=== PATIENT | female | born 1940 | race Caucasian/White ===

== ENCOUNTER 2023-06-11 15:14 | Outpatient (AMB) | payer MEDICARE, OTHER, SELFPAY ==
--- NOTE | 2023-06-11 15:19 | MHC.OFFVIS ---
Vital Signs 06/11/23 15:26 Height 5 ft 2 in Weight 160 lb BMI 29.3 BP 141/65 H Blood Pressure Location Rt brachial Position Sitting Pulse 68 Pulse Source Pulse Oximeter Pulse Oximetry (%) 97 Oxygen Delivery Method Room Air Intake Visit Reasons: (R) Hip Pain Intake Note: Pain today 7/10 Account Liaison Required: No Accompanied by: Self / Same As Patient Allergies adhesive tape Allergy (Unknown, Verified 06/11/23 15:54) Unknown erythromycin base Allergy (Unknown, Verified 06/11/23 15:54) Unknown Penicillins Allergy (Unknown, Verified 06/11/23 15:54) Unknown thioridazine [From Mellaril] Allergy (Unknown, Verified 06/11/23 15:54) Unknown HPI Comments Details: Ruth is a very pleasant 83-year-old female who presents the office today for evaluation management of her chronic right hip pain. Patient was referred here from [facility], she is undergone steroid injections without improvement of her symptoms. She is looking for neuromodulation. She has been evaluated by Orthopedics, was planning for right hip replacement. Decided that she no longer wanted to proceed with this as she got ?scared?. Would like to try less invasive option. She has been suffering with this pain for many years, worse with walking. Pain today is rated as a 7/10, constant. Patient is currently taking oxycodone 20 mg 4 times daily for pain. Patient also takes Tylenol and gabapentin. Patient had fluoroscopy guided right hip steroid injection approximately 1 year ago without improvement of her symptoms. In terms of muscle damage condition is described as strong, dull, sore, hurting. Pain is negatively impacting patient's activities of daily living, ambulation and normal functioning. She uses a walker for ambulation. She lives at home currently her grandson stays with her. Patient denies use of blood thinners. Denies history of implantable devices, pacemaker, defibrillator. [facility] Medical History (Updated 06/11/23 @ 16:21 by Spring Busch APRN, [employer]) Hyperparathyroidism Osteoarthritis Hypertension Stroke Spondylosis without myelopathy or radiculopathy, lumbar region [employer] customer [employer] (current) use of opiate analgesic Low back pain, unspecified Unilateral primary osteoarthritis, right hip Surgical History (Updated 06/11/23 @ 16:05 by Zelda Eller) Hx of cataract surgery H/O: hysterectomy (~1981) Hx of hernia repair (Unknown) Hx of cholecystectomy (~1994) Social History (Updated 06/11/23 @ 15:29 by Zelda Eller) Alcohol intake: current Alcohol intake frequency: holidays/special occasions only Patient Tobacco Use Status: Former Tobacco user Quit Date: 1984 Review of Systems Const All systems reviewed & are unremarkable except as noted in HPI and below Physical Exam Vital Signs: Last Vital Signs Pulse 68 06/11/23 15:26 BP 141/65 H 06/11/23 15:26 Pulse Ox 97 06/11/23 15:26 Oxygen Delivery Method Room Air 06/11/23 15:26 BMI result Body Mass Index 29.3 General: awake, alert, oriented. Answers questions appropriately. Fully engaged in examination. Skin: warm, dry, intact HEENT: Normocephalic. Hearing intact. Cardiac: External chest normal in appearance. Respiratory: No cough, audible wheezing or stridor. Abdomen: without gross distension. MS: Ambulates with the use of a walker Able to transition from sit to stand unassisted. Ambulates with bilaterally normal heel strike and toe off Right hip range of motion limited Pain with internal external rotation of the right hip Neurological: Oriented to person, place, time and situation. Thought process intact. Psychiatric: Appropriate mood and affect. Good judgment and insight. Assessment & Plan Assessment & Plan (1) Osteoarthritis of right hip: Code(s): M16.11 - Unilateral primary osteoarthritis, right hip Category: Medical (2) Chronic, continuous use of opioids: Code(s): F11.90 - Opioid use, unspecified, uncomplicated Category: Medical Plan Patient presented to the office today for evaluation management of her right hip pain She was pending right hip replacement, decided that she did not want to go for this and is looking for alternative treatment options. Lengthy discussion with patient's name regarding diagnosis and available treatment options including diagnostic testing, steroid injections and more permanent neuromodulation. Patient would like to proceed with L4-5 spinal cord stimulator trial with [facility]. She is aware that this would require mental health evaluation. She will expect a call to complete the mental health evaluation. All questions and concerns were answered, patient agrees with the plan. Follow up in the office after SCS trial, sooner if needed. Coding Level of Care Code New Pt Level 4 (81885) Diagnoses Osteoarthritis of right hip M16.11 Chronic, continuous use of opioids F11.90
[2023-06-11 15:26] VITALS: BP 141/65; PULSE 68; O2SAT 97; BMI 29.3
== END 2023-06-11 16:17 | disposition home or self-care (01) ==
PROVIDERS: PCP Family Medicine; Visit Provider Registered Nurse Emergency
DX: M16.11 Unilateral primary osteoarthritis, right hip (principal); Z79.891 Long term (current) use of opiate analgesic
CPT/HCPCS: 99204

== ENCOUNTER → 2023-06-11 15:14 | Outpatient (BNVA) | payer MEDICARE, OTHER, SELFPAY | PROVIDERS: Visit Provider Registered Nurse Emergency | DX: M16.11 Unilateral primary osteoarthritis, right hip (principal); Z79.891 Long term (current) use of opiate analgesic | CPT/HCPCS: 99202 ==